=== PATIENT | male | born 1945 | race Caucasian/White ===

== ENCOUNTER 2018-05-01 07:18 | Emergency (ER) | payer MEDICARE, BC, SELFPAY ==
[2018-05-01 07:19] VITALS: BP 138/74; PULSE 84; RESP 16; TEMP 37.1; O2SAT 93; BMI 32.1
--- NOTE | 2018-05-01 07:42 | CT_ITS ---
STUDY: CT BRAIN WITHOUT CONTRAST REASON FOR EXAM: Male, 72 years old. NIELSEN, SINUS PRESSURE AND DRAINAGE SINCE THURSDAY, HX-CAD,CABG, HTN, DB RADIATION DOSAGE (If Supplied By Facility): CTDIvol = ( 44.99 ) mGy, DLP = ( 812.98 ) mGycm TECHNIQUE: Transaxial CT imaging of the brain was performed without administration of intravenous contrast material. Individualized dose optimization techniques were used for this CT. COMPARISON: None. FINDINGS: There is cerebral atrophy with widening of the extra-axial spaces and ventricular dilatation. There are areas of decreased attenuation within the white matter tracts of the supratentorial brain, consistent with microvascular disease changes. There is no intracranial hemorrhage. There are no findings of an acute ischemic infarction. Normal soft tissue structures. There is mucoperiosteal inflammatory disease of the paranasal sinuses consistent with moderate chronic sinusitis. CT/Brain/Head without Contrast IMPRESSION: Chronic involutional changes of the brain. Moderate sinus disease Electronically Signed: Catherine Barnett MD at 8:13 EDT Tel , Service support ,
--- NOTE | 2018-05-01 07:42 | RAD_ITS ---
STUDY: X-RAY CHEST REASON FOR EXAM: Male, 72 years old. Chest tightness. Difficulty in breathing since one day. Headache. TECHNIQUE: PA and lateral views of the chest. COMPARISON: 02/27/2017 FINDINGS: Shallow inspiration. Low lung volumes. There is continued elevation of the diaphragm right side more than the left. Chronic mild interstitial thickening of the mid/lower lung zones bilaterally again demonstrated. There is pleural fibrotic scarring of the left costophrenic angle. Sternal cerclage wires and vascular clips are present from a prior sternotomy and coronary artery bypass graft procedure (CABG). Stable mild cardiomegaly. Normal mediastinum and panchito. Normal visualized pulmonary arteries. There is atherosclerotic calcification of the aortic arch with tortuosity. There is an increased kyphosis of the thoracic spine. Multilevel degenerative thoracolumbar spondylosis. No demonstrated acute abnormality of the visualized ribs, clavicles, and shoulders. There is no demonstrated abnormality of the visualized soft tissue structures of the upper abdomen. RAD/Chest PA and Lateral IMPRESSION: 1. No definite acute cardiopulmonary abnormality noted. 2. Stable chronic changes of the lungs. Stable mild cardiomegaly. 3. Persistently low lung volumes. Electronically Signed: Nitish Humphreys MD at 8:27 EDT Tel , Service support ,
[2018-05-01] MEDS: Loratadine 10 MG Tablet PO (08:05)
[2018-05-01] MEDS: Oxymetazoline 0.05% 1 SPRAY SPRAY.BTL NASAL (08:05)
--- NOTE | 2018-05-01 08:09 | ED.DCSUM_ITS ---
- ER Visit Summary Date of Service: 05/01/18 Chief Complaint: Sinus pressure, headache History of Present Illness: The patient is a 72 M who presents complaining of sinus pressure and drainage down his throat for the past 3 days. He is complaining of headache. He states the only headaches he usually gets sinus headaches. He states because there is drainage on his throat he has had cough with white sputum. He took Benadryl this morning at 3 AM without improvement. History is significant for coronary disease, diabetes, hypertension, kidney stones, gout, mild aortic stenosis. Physical Examination: Blood pressure is 138/74, temperature 98.8, heart rate 84 , respiratory rate 16, pulse ox 93% on room air. Patient sitting upright on the side of the bed. He is in no acute distress and speaking full sentences. Head neck examination reveals TMs to be clear bilaterally. No significant rhinorrhea. He does have posterior pharyngeal drainage. No uvular shift. Minimal cervical lymphadenopathy is noted. Heart is regular rate and rhythm. Lung sounds are clear. Abdomen is soft and nontender. Test Results: CT scan of the head shows chronic involutional changes. Moderate sinus disease is noted. Two-view chest x-ray shows no definite acute abnormality. Stable chronic changes are noted. Emergency Department Course and Treatment: Patient was given Claritin and Afrin nasal spray. He was also given Tylenol. Repeat evaluation patient's resting comfortably. He is describing prior sinus infections that were quite significant. He will be given a prescription for Augmentin, first dose given here. Treatment Plan: [] Disposition: Discharge Impression: Sinusitis This note was generated with [employer] dictation software. It may contain incorrect words, spelling, and punctuation that were not noted in review of the chart prior to signing ED Disposition - Plan for ED Patient: Chief Complaint: Headache Referrals: Du Rice MD [Primary Care Provider] -
--- NOTE | 2018-05-01 08:56 | ED.DEP ---
ED Disposition - Plan for ED Patient: Disposition: Home or Assisted Living Chief Complaint: Headache Instructions: ED Sinusitis Abx Tx Prescriptions: Amox/Clavulanate Tablet [Augmentin Tablet] 875 mg PO Q12H #20 tablet Referrals: Du Rice MD [Primary Care Provider] - 1-2 Weeks Additional Instructions: Follow-up with your ENT doctor in [place] as needed.
[2018-05-01] MEDS: Amox/Clavulanate 875 MG Tablet PO (09:03)
== END 2018-05-01 09:05 | disposition home or self-care (01) ==
PROVIDERS: Emergency Provider Emergency Medicine; Family Provider Family Medicine; PCP Family Medicine
DX: J32.9 Chronic sinusitis, unspecified (principal); I25.10 Atherosclerotic heart disease of native coronary artery without angina pectoris; E11.9 Type 2 diabetes mellitus without complications; I10 Essential (primary) hypertension; M10.9 Gout, unspecified; I35.0 Nonrheumatic aortic (valve) stenosis; Z87.442 Personal history of urinary calculi; Z87.891 Personal history of nicotine dependence; Z95.1 Presence of aortocoronary bypass graft; Z79.82 Long term (current) use of aspirin; Z79.4 Long term (current) use of insulin; Z79.899 Other long term (current) drug therapy
CPT/HCPCS: 70450; 71046; 99283

== ENCOUNTER → 2018-07-07 07:00 | Outpatient (CLI) | payer MEDICARE, BC, SELFPAY ==
[2018-07-07 10:28] LABS: ALB/GLOB Ratio 0.9 RATIO (0.9-2.4); AST(SGOT) 15 U/L (15-37); Alanine Aminotransfer ALT/SGPT 18 U/L (16-61); Albumin, Serum 3.2 g/dL (3.2-5.0); Alkaline Phosphatase 287 U/L (45-117); Anion Gap 8 (5-15); BUN 33 mg/dL (7-18); BUN/Creat Ratio 21.9 RATIO (10-20); Calcium,Total 8.7 mg/dL (8.5-10.1); Chloride 101 mmol/L (98-107); Cholesterol 92 mg/dL (200); Creatinine, Serum 1.51 mg/dL (0.70-1.30); EST Glomerular Filtration Rate 48 mL/min (>60); Est Glom Filt Rate - Afr Amer 59 mL/min (>60); Globulin 3.7 g/dL (2.2-4.2); Glucose 242 mg/dL (74-106); High Density Lipoprotein 28 mg/dL; Potassium 4.2 mmol/L (3.5-5.1); Protein, Total 6.9 g/dL (6.4-8.2); Sodium Level 140 mmol/L (136-145); Triglycerides 92 mg/dL; Very Low Density Lipoprotein 18 mg/dL (5-40)
[2018-07-07 10:38] LABS: Hemoglobin A1c 13.6 % (4.2-6.3)
[2018-07-07 10:55] LABS: Microalbumin:Creatinine Ratio 185.2 mg/g CRE (<30 mg/g CRE)
== END ==
PROVIDERS: Family Provider Family Medicine; PCP Family Medicine; Visit Provider Nurse Practitioner
DX: E11.9 Type 2 diabetes mellitus without complications (principal); E11.65 Type 2 diabetes mellitus with hyperglycemia; E78.5 Hyperlipidemia, unspecified
CPT/HCPCS: 36415; 80053; 80061; 82043; 82570; 83036

== ENCOUNTER → 2018-12-21 07:27 | Outpatient (CLI) | payer MEDICARE, BC, SELFPAY ==
[2018-11-24 14:19] VITALS: BMI 33.0
--- NOTE | 2018-12-21 07:29 | ECHOD_ITS ---
Reason For Study: MURMUR Procedure This was a 2D Doppler, Color Flow transthoracic echocardiogram. Definity not utilized due to increased pulmonary pressure. The study was technically difficult. Exam performed in department. Left Ventricle Normal LV size. Moderate concentric left ventricular hypertrophy. Segmental dysfunction with preserved ejection fraction (see wall motion). The estimated ejection fraction is 65 %. Transmitral diastolic flow velocities suggest moderate (stage 2) diastolic dysfunction (pseudonormal pattern). Infero-Basal: Hypokinetic. Basal inferoseptal: Hypokinetic. Right Ventricle Normal RV size. Normal systolic function. Atria The left atrium is mildly enlarged. Normal right atrium. No doppler evidence for ASD. Mitral Valve There is no mitral annular calcification. Mild diffuse mitral valve thickening. Trivial mitral valve insufficiency. Tricuspid Valve Normal tricuspid valve. Mild tricuspid valve insufficiency. Right ventricular systolic pressure estimated to be 65 mmHg. Aortic Valve Trisinus/trileaflet aortic valve. Mild diffuse aortic valve thickening. Mild focal aortic valve calcification. Mild aortic stenosis. Trivial aortic valve insufficiency. Pulmonic Valve The pulmonic valve is not well visualized. Trivial pulmonic valve insufficiency. Great Vessels Normal sized aortic root. Pericardium/Pleural No pericardial effusion. MMode/2D Measurements & Calculations LVIDd: 4.8 cm IVSd: 1.7 cm LVOT diam: 2.0 cm LVIDs: 3.3 cm LVPWd: 1.6 cm LVOT area: 3.0 cm2 RVDd: 4.4 cm FS: 29.5 % Ao root diam: 3.4 cm LAV(MOD-bp): 86.9 ml LVAd ap4: 38.4 cm2 LAV(MOD-bp) Indexed: 42.5 ml/m2 EDV(MOD-sp4): 134.1 ml LAV(MOD-sp2): 101.6 ml EDV(sp4-el): 140.0 ml LAV(MOD-sp4): 74.0 ml LVAs ap4: 21.3 cm2 ESV(MOD-sp4): 49.2 ml ESV(sp4-el): 48.2 ml EF(MOD-sp4): 63.3 % EF(sp4-el): 65.6 % SV(MOD-sp4): 84.9 ml SV(sp4-el): 91.8 ml LA A4 area: 23.8 cm2 LA dimension(2D): 5.7 cm RA A4 area: 16.5 cm2 Time Measurements MV dec time: 0.22 sec Doppler Measurements & Calculations MV E max last: 138.2 cm/sec Lat Peak E' Last: 10.5 cm/sec Med Peak E' Last: 5.9 cm/sec MV A max last: 88.7 cm/sec E/E' lat: 13.2 E/E' med: 23.2 MV E/A: 1.6 Ao V2 max: 263.5 cm/sec AI max lats: 429.4 cm/sec LV V1 max: 126.3 cm/sec Ao max P.8 mmHg AI max P.7 mmHg LV V1 max P.4 mmHg Ao V2 mean: 179.0 cm/sec LV V1 mean P.2 mmHg Ao mean P.8 mmHg AI dec slope: 259.3 cm/sec2 LV V1 mean: 82.6 cm/sec Ao V2 VTI: 58.2 cm AI P1/2t: 485.1 msec LV V1 VTI: 30.0 cm HECTOR(I,D): 1.6 cm2 HECTOR(V,D): 1.4 cm2 SV(LVOT): 90.4 ml PA V2 max: 142.6 cm/sec TR max last: 378.6 cm/sec TR max P.4 mmHg Interpretation Summary The study was technically difficult. Segmental dysfunction with preserved ejection fraction (see wall motion). The estimated ejection fraction is 65 %. Moderate concentric left ventricular hypertrophy. The left atrium is mildly enlarged. Mild diffuse mitral valve thickening. Trivial mitral valve insufficiency. Mild tricuspid valve insufficiency. Mild aortic stenosis. Trivial aortic valve insufficiency. Trivial pulmonic valve insufficiency. Right ventricular systolic pressure estimated to be 65 mmHg. Transmitral diastolic flow velocities suggest diastolic dysfunction (pseudonormal pattern). Ordering Physician: Sumeet Allan Referring Physician: TISH RUSH Performed By: Iris Alcala RDCS
== END ==
PROVIDERS: Family Provider Family Medicine; PCP Family Medicine; Referring Provider Internal Medicine Cardiovascular Disease; Visit Provider Internal Medicine Cardiovascular Disease
DX: I25.10 Atherosclerotic heart disease of native coronary artery without angina pectoris (principal); I35.0 Nonrheumatic aortic (valve) stenosis
CPT/HCPCS: 93306

== ENCOUNTER → 2018-12-27 06:58 | Outpatient (CLI) | payer MEDICARE, BC, SELFPAY ==
[2018-11-24 14:19] VITALS: BMI 33.0
[2018-12-27 10:18] LABS: ALB/GLOB Ratio 0.9 RATIO (0.9-2.4); AST(SGOT) 10 U/L (15-37); Alanine Aminotransfer ALT/SGPT 17 U/L (16-61); Albumin, Serum 3.1 g/dL (3.2-5.0); Alkaline Phosphatase 288 U/L (45-117); Anion Gap 6 (5-15); BUN 32 mg/dL (7-18); Calcium,Total 8.4 mg/dL (8.5-10.1); Chloride 101 mmol/L (98-107); Creatinine, Serum 1.68 mg/dL (0.70-1.30); EST Glomerular Filtration Rate 43 mL/min (>60); Est Glom Filt Rate - Afr Amer 52 mL/min (>60); Globulin 3.6 g/dL (2.2-4.2); Glucose 104 mg/dL (74-106); Potassium 3.7 mmol/L (3.5-5.1); Protein, Total 6.7 g/dL (6.4-8.2); Sodium Level 140 mmol/L (136-145)
[2018-12-27 10:19] LABS: Hemoglobin A1c 12.4 % (4.2-6.3)
== END ==
PROVIDERS: Family Provider Family Medicine; PCP Family Medicine; Referring Provider Nurse Practitioner; Visit Provider Nurse Practitioner
DX: E11.65 Type 2 diabetes mellitus with hyperglycemia (principal)
CPT/HCPCS: 36415; 80053; 82043; 82570; 83036

== ENCOUNTER 2019-01-01 12:47 | Emergency (ER) | payer MEDICARE, BC, SELFPAY ==
[2018-11-24 14:19] VITALS: BMI 33.0
[2019-01-01 12:48] VITALS: BP 136/75; PULSE 59; RESP 17; TEMP 37.1; O2SAT 95; BMI 34.0
--- NOTE | 2019-01-01 14:01 | RAD_ITS ---
STUDY: X-RAY - RIGHT KNEE REASON FOR EXAM: Male, 73 years old. Trauma, right knee pain TECHNIQUE: 4 view(s) of the knee. COMPARISON: None. FINDINGS: Normal visualized distal femur. Normal visualized proximal tibia and fibula. Normal proximal tibiofibular articulation. Chondrocalcinosis of the medial femorotibial compartment. Chondrocalcinosis of the lateral femorotibial compartment. There is mild degenerative arthrosis of the patellofemoral articulation. There is a soft tissue prominence in the suprapatellar region suggesting a small volume joint effusion. There are atherosclerotic calcifications. RAD/Knee 4 or More Views IMPRESSION: 1. No fracture or malalignment. Small joint effusion. 2. Chondrocalcinosis. 3. Atherosclerosis. 4. Patellofemoral joint osteoarthrosis. Electronically Signed: Mathieu Jones MD at 14:40 EST , Service support ,
[2019-01-01] MEDS: Benzonatate 100 MG Capsule PO (14:46)
[2019-01-01 14:58] LABS: Absolute Lymphocyte Count 0.84 X10^3/ul (0.83-4.51); Absolute Neutrophil Count 4.7 X10^3/uL (2.0-7.7); Basophil# 0.04 X10^3/uL; Basophil% 0.6 % (0-1); Eosinophils% 1.6 % (0-5); Hematocrit 31.3 % (40-54); Hemoglobin 10.1 g/dl (13.0-16.5); Lymphocyte # 0.84 X10^3/ul (4.0); Lymphocyte % 13.5 % (19-41); Mean Corp Hgb Conc 32.3 g/gl (32-36); Mean Corpuscular Hgb 29.6 pg (27.0-32.0); Mean Corpuscular Volume 91.8 fL (80-94); Mean Platelet Vol. 8.8 fl (6.2-12.0); Monocyte# 0.57 X10^3/uL; Monocyte% 9.1 % (0-10); Neutrophil # 4.68 X10^3/uL (2.7-7.7); Platelet Count 204 K/mm3 (150-450); RBC Distribution Width CV 13.5 % (11.6-14.6); RBC Distribution Width SD 43.7 fl (35.1-43.9); Red Blood Count 3.41 M/mm3 (4.6-6.2); White Blood Count 6.2 K/mm3 (4.4-11.0)
[2019-01-01 14:59] LABS: POSITIVE COUNT NO; POSITIVE DIFFERENTIAL NO; POSITIVE MORPHOLOGY NO
[2019-01-01 15:12] LABS: Anion Gap 5 (5-15); BUN 32 mg/dL (7-18); BUN/Creat Ratio 20.8 RATIO (10-20); Calcium,Total 8.3 mg/dL (8.5-10.1); Chloride 100 mmol/L (98-107); Creatinine, Serum 1.54 mg/dL (0.70-1.30); EST Glomerular Filtration Rate 47 mL/min (>60); Est Glom Filt Rate - Afr Amer 57 mL/min (>60); Estimated Creatinine Clearance 37.98 ml/min; Glucose 340 mg/dL (74-106); Potassium 4.1 mmol/L (3.5-5.1); Sodium Level 138 mmol/L (136-145)
[2019-01-01] MEDS: Acetaminophen 500 MG Tablet PO (15:44)
--- NOTE | 2019-01-01 16:12 | ED.VISSUMM ---
- ER Visit Summary Date of Service: 01/01/19 Chief Complaint: Right knee injury History of Present Illness: The patient is a 73 M who states that his right knee has had pain in it for some time. He is wondering if he needs a knee replacement. He states that today gave out on him and he fell. He notes knee pain. Daughter states that he has significant leg swelling. He is on hydrochlorothiazide low-dose as well as Lasix. He has chronic kidney disease with creatinine around 1.5. He is a diabetic and also had a CABG in the past. Physical Examination: Afebrile vital signs are stable Gen: Well-nourished well-developed Head: Normocephalic atraumatic Eyes: Perrl EOMI ENT: TMs clear no rhinorrhea moist mucous membranes Neck: Supple no lymphadenopathy no JVD nontender CVS: Regular rate rhythm no murmurs normal S1-S2 Respiratory: No distress clear to auscultation bilaterally chest nontender Abdomen: Soft nontender nondistended normal bowel sounds no masses Back: Nontender Extremity: Tenderness generalized around the right knee. There is 2+ lymphedema to the level of the knees. There are no cellulitic changes. Ligaments appear stable upon testing. Skin: Normal color no rash Neuro: alert orientated ?3 CN II-XII intact normal strength sensation reflexes gait cerebellar Psych: Normal affect normal mood Test Results: Hemoglobin 10.1. BUN of 32 with creatinine 1.54. Glucose of 340 CO2 of 33. X-rays of the right knee were obtained which demonstrated Degenerative changes. There is suggestion of a small joint effusion. Emergency Department Course and Treatment: Patient's daughter initially for me that she wanted him placed in rehab facility. We do not have social work available to assist with this today. He received Tylenol for pain because he did not want anything stronger. Went back into the room to review everything and the patient states that he does not wish to stay in the hospital tonight. If he does not want a rehab facility or jail. He states he was her highest hire somebody to help him out in his house to a assisted living center. Daughter states she is going to stay with him because he will not go to her house. He has a walker at home. We will use a Maxwell wrap. I believe this to be an ankle sprain complicated by lymphedema as well as chronic degenerative changes. There may be a component of meniscal injury. At this time we will treat as a sprain and they will follow-up with orthopedics. They wish to see Dr. Rice. I did offer to have social work call them tomorrow and this was declined. Impression: 1. Right knee sprain 2. Osteoarthritis 3. Lymphedema This note was generated with theScoreation software. It may contain incorrect words, spelling, and punctuation that were not noted in review of the chart prior to signing ED Disposition - Plan for ED Patient: Disposition: Home or Assisted Living Instructions: ED Sprain Knee Referrals: Du Rice MD [Primary Care Provider] - As soon as possible Gian Rice MD [STAFF PHYSICIAN] - As soon as possible
[2019-01-01 16:48] VITALS: BP 162/75; PULSE 78; RESP 18; O2SAT 93
== END 2019-01-01 16:56 | disposition home or self-care (01) ==
PROVIDERS: Emergency Provider Emergency Medicine; Family Provider Family Medicine; PCP Family Medicine
DX: S83.91XA Sprain of unspecified site of right knee, initial encounter (principal); W19.XXXA Unspecified fall, initial encounter; Y93.9 Activity, unspecified; Y92.9 Unspecified place or not applicable; Y99.9 Unspecified external cause status; M19.90 Unspecified osteoarthritis, unspecified site; I89.0 Lymphedema, not elsewhere classified; I12.9 Hypertensive chronic kidney disease with stage 1 through stage 4 chronic kidney disease, or unspecified chronic kidney disease; E11.22 Type 2 diabetes mellitus with diabetic chronic kidney disease; N18.9 Chronic kidney disease, unspecified; Z79.82 Long term (current) use of aspirin; Z79.4 Long term (current) use of insulin; Z79.899 Other long term (current) drug therapy; Z95.1 Presence of aortocoronary bypass graft
CPT/HCPCS: 73564; 80048; 85025; 99284; A4216